=== PATIENT | male | born 1990 | race Two or more races ===

== ENCOUNTER 2018-12-14 20:38 | Emergency (ER) | payer OTHER ==
[~2018-12-14] VITALS: Ht 182.9 cm; Wt 82.6 kg
[2018-12-14 21:20] LABS: Basophils # (auto) 0 uL; Basophils % (auto) 0.2 % (0.0-2.0); Eosinophils # (auto) 0 uL; Hematocrit 41.7 % (41.0-53.0); Hemoglobin 14.2 g/dL (13.5-17.5); Lymphocytes # (auto) 1.3 uL; Lymphocytes % (auto) 12.2 % (10.0-50.0); Mean Corpuscular Hemoglobin 30.9 pg (28.0-32.0); Mean Corpuscular Volume 90.9 fL (80.0-100.0); Monocytes # (auto) 0.5 uL; Monocytes % (auto) 4.8 % (0.0-12.0); Neutrophils # (auto) 9.1 uL; Neutrophils % (auto) 82.8 % (37.0-80.0); Platelet Count (auto) 263 10^3/uL (140-450); Red Blood Cells 4.59 10^6/uL (4.5-5.90); Red Cell Distribution Width 13.3 % (11.8-14.3)
[2018-12-14] MEDS ORDERED: ACETAMINOPHEN 325 MG TAB PO ONE (21:45)
[2018-12-14 21:50] LABS: BUN/Creatinine Ratio 13.6; Calcium 8.7 mg/dL (8.5-10.1); Potassium 4.1 mmol/L (3.5-5.1)
[2018-12-14 21:53] LABS: Bilirubin, Total 0.4 mg/dL (0.2-1.0); Total Protein 9.4 g/dL (6.4-8.2)
[2018-12-14 22:01] LABS: INR 1.12 (0.9-1.15); Partial Thromboplastin Time 23.6 sec (23.64-32.05)
[2018-12-15] MEDS ORDERED: ceFAZolin 1GM/50ML 100 ML IV ONE (00:45)
[2018-12-15] MEDS ORDERED: ONDANSETRON HCL 4 MG/2 ML VIAL IV ONE (00:45)
[2018-12-15] MEDS ORDERED: TETANUS-DIPTH-ACEL PERTUSSIS 0.5ML SYRG IM ONE (00:45)
[2018-12-15] MEDS ORDERED: HYDROmorphone HCL 2 MG/ML VL IV ONE (00:45)
[2018-12-15 01:58] VITALS: BP 131/71
== END 2018-12-15 02:05 | disposition home or self-care (01) ==
LOC: EEVIPCON 20:41 → ER 20:41
DX: S06.9X9A Unspecified intracranial injury with loss of consciousness of unspecified duration, initial encounter (principal); S01.112A Laceration without foreign body of left eyelid and periocular area, initial encounter; Y04.2XXA Assault by strike against or bumped into by another person, initial encounter; Y93.89 Activity, other specified; Y92.89 Other specified places as the place of occurrence of the external cause; Y99.8 Other external cause status
CPT/HCPCS: 12011; 36415; 70450; 70486; 71046; 80053; 85025; 85610; 85730; 90471; 90715; 93005; 96365; 96375; 99284; J0690; J1170; J2405